=== PATIENT | female | born 1930 | race Caucasian/White ===

== ENCOUNTER 2019-08-24 20:28 | Inpatient (IN) | payer MEDICARE, BC ==
[2019-08-24] MEDS ORDERED: LORazepam 0.5 MG Tab PO ONE (21:15)
[2019-08-24] MEDS ORDERED: risperiDONE 0.5 MG Tab PO ONE ×2 (21:15→23:35)
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
[2019-08-24] MEDS ORDERED: LORazepam 0.5 MG Tab PO PRN (21:57)
[2019-08-25] MEDS ORDERED: LORazepam 0.5 MG Tab PO PRN ×2 (03:07→03:55)
[2019-08-25] MEDS ORDERED: risperiDONE 0.25 MG Tab PO SCH (09:00)
[2019-08-25] MEDS ORDERED: Mirtazapine 15 MG Tab PO SCH (09:00)
[2019-08-25] MEDS ORDERED: Acetaminophen 325 MG/10.15 ML ML PO PRN (12:51)
[2019-08-25] MEDS: Acetaminophen 325 MG Tab PO PRN (13:04)
[2019-08-25] MEDS: LORazepam 0.5 MG Tab PO PRN (14:29)
[2019-08-25] MEDS: QUEtiapine 25 MG Tab PO SCH ×2 (20:16→21:15)
[2019-08-25] MEDS: BETAMETHASONE DIPROPIONATE TOP SCH (20:20)
[2019-08-25] MEDS: CALCIPOTRIENE TOP SCH (20:20)
[2019-08-25] MEDS ORDERED: Sertraline 25 MG Tab PO SCH (21:00)
[2019-08-26] MEDS ORDERED: risperiDONE 0.25 MG Tab PO SCH (09:00)
[2019-08-26] MEDS: BETAMETHASONE DIPROPIONATE TOP SCH ×3 (09:00→20:07)
[2019-08-26] MEDS ORDERED: Non-Formulary Medication 1 Each (Mirtazapine [Mirtazapine] 7.5 MG) PO SCH (09:00)
[2019-08-26] MEDS: LORazepam 0.5 MG Tab PO PRN (09:04)
[2019-08-26] MEDS: CALCIPOTRIENE TOP SCH ×2 (09:04→13:42)
[2019-08-26] MEDS: Acetaminophen 325 MG Tab PO PRN ×2 (09:05→20:01)
[2019-08-26] MEDS: QUEtiapine 25 MG Tab PO SCH (20:01)
[2019-08-26] MEDS ORDERED: Mirtazapine 15 MG Tab PO SCH (21:00)
[2019-08-27] MEDS: LORazepam 0.5 MG Tab PO PRN (06:31)
[2019-08-27] MEDS: Acetaminophen 325 MG Tab PO PRN ×2 (06:31→20:04)
--- NOTE | 2019-08-27 09:13 | PCM.PN ---
- Patient Data Vitals - Most Recent: Last Vital Signs Temp 36.6 C 08/26/19 20:17 Pulse 80 08/26/19 20:17 Resp 20 08/26/19 20:17 BP 120/100 H 08/26/19 20:44 Pulse Ox 99 08/26/19 20:17 Weight - Most Recent: 59.058 kg I&O - Last 24 Hours: Intake & Output 08/26/19 08/27/19 08/27/19 22:59 06:59 14:59 Intake Total 880 340 Output Total 450 Balance 880 -110 Med Orders - Current: Current Medications Acetaminophen (Tylenol) 325 mg PO Q4H PRN PRN Reason: Pain Last Admin: 08/27/19 06:31 Dose: 325 mg Lorazepam (Ativan) 0.5 mg PO Q8H PRN PRN Reason: Anxiety Last Admin: 08/27/19 06:31 Dose: 0.5 mg Betamethasone (Dipropionate 1 Mg) 0 each TOP BID [facility] Last Admin: 08/26/19 20:07 Dose: 1 each Quetiapine Fumarate (Seroquel) 12.5 mg PO BEDTIME [facility] Last Admin: 08/26/19 20:01 Dose: 12.5 mg Discontinued Medications Lorazepam (Ativan) 0.5 mg PO ONETIME ONE Stop: 08/24/19 21:16 Last Admin: 08/24/19 21:27 Dose: 0.5 mg Lorazepam (Ativan) 0.5 mg PO BEDTIME PRN PRN Reason: agitation Last Admin: 08/24/19 23:38 Dose: 0.5 mg Lorazepam (Ativan) 0.5 mg PO Q6H PRN PRN Reason: restlessness Mirtazapine (Remeron) 7.5 mg PO DAILY [facility] Last Admin: 08/25/19 09:29 Dose: 7.5 mg Mirtazapine (Remeron) 7.5 mg PO BEDTIME [facility] Non-Formulary Medication (Mirtazapine [Mirtazapine]) 7.5 mg PO DAILY [facility] Calcipotriene [ (Dovonex] 1 Mg) 0 each TOP BID [facility] Last Admin: 08/26/19 13:42 Dose: Not Given Risperidone (Risperidal) 0.5 mg PO ONETIME ONE Stop: 08/24/19 21:16 Last Admin: 08/24/19 21:27 Dose: 0.5 mg Risperidone (Risperidal) 0.5 mg PO ONETIME ONE Stop: 08/24/19 23:36 Last Admin: 08/24/19 23:38 Dose: 0.5 mg Risperidone (Risperidal) 0.25 mg PO DAILY [facility] Last Admin: 08/25/19 09:29 Dose: 0.25 mg Risperidone (Risperidal) 0.25 mg PO DAILY [facility] Sertraline HCl (Zoloft) 25 mg PO BEDTIME [facility]
--- NOTE | 2019-08-27 09:13 | PCM.HP.2 ---
H&P History of Present Illness - General Admit Problem/Dx: Admission Diagnosis/Problem Admission Diagnosis/Problem Dementia Left Upper Abdomen Pain Score (Numeric/FACES): 4 - Related Data Allergies/Adverse Reactions: Allergies Allergy/AdvReac Type Severity Reaction Status Date / Time No Known Allergies Allergy Verified 08/24/19 20:46 Home Medications: Home Meds Betamethasone Dipropionate [Diprosone 0.05% Crm] 1 mg TOP BID 08/24/19 [History] Calcipotriene [Dovonex] 1 mg TOP BID 08/24/19 [History] LORazepam 0.5 mg PO Q8H PRN 08/24/19 [History] Mirtazapine 7.5 mg PO DAILY 08/24/19 [History] Sertraline [Zoloft] 25 mg PO DAILY 08/24/19 [History] risperiDONE 0.25 mg PO DAILY 08/24/19 [History] Past Medical History HEENT History: Reports: Impaired Vision Cardiovascular History: Reports: Afib, Hypertension Genitourinary History: Reports: Other (See Below) Other Genitourinary History: bladdar infections frequent [employer] History: Reports: Musculoskeletal History: Reports: Back Pain, Chronic, Osteoporosis, Other (See Below) Other Musculoskeletal History: scoliosis Neurological History: Reports: Alzheimers Disease, Other (See Below) Other Neuro History: dementia Psychiatric History: Reports: Alzheimers Disease, Anxiety, Dementia, Emotional Problems Dermatologic History: Reports: Psoriasis - Infectious Disease History Infectious Disease History: Reports: C-Difficile, Measles, Mumps - Past Surgical History HEENT Surgical History: Reports: Cataract Surgery Social & Family History - Family History Family Medical History: Noncontributory Neurological: Reports: Alzheimers Disease, Other (See Below) Other Neurological Family History: dementia - Tobacco Use Smoking Status *Q: Never Smoker Second Hand Smoke Exposure: No - Caffeine Use Caffeine Use: Reports: Coffee Caffeine Use Comment: de-caf coffee - Recreational Drug Use Recreational Drug Use: No Exam - Vital Signs Vital Signs: Last Vital Signs Temp 36.6 C 08/26/19 20:17 Pulse 80 08/26/19 20:17 Resp 20 08/26/19 20:17 BP 120/100 H 08/26/19 20:44 Pulse Ox 99 08/26/19 20:17 Weight: 59.058 kg Orders Last 24hrs: Medication Orders Acetaminophen (Tylenol) 325 mg PO Q4H PRN PRN Reason: Pain Last Admin: 08/27/19 06:31 Dose: 325 mg Admin: 08/26/19 20:01 Dose: 325 mg Admin: 08/26/19 09:05 Dose: 325 mg Admin: 08/25/19 13:04 Dose: 325 mg Lorazepam (Ativan) 0.5 mg PO Q8H PRN PRN Reason: Anxiety Last Admin: 08/27/19 06:31 Dose: 0.5 mg Admin: 08/26/19 09:04 Dose: 0.5 mg Admin: 08/25/19 14:29 Dose: 0.5 mg Betamethasone (Dipropionate 1 Mg) 0 each TOP BID [facility] Last Admin: 08/26/19 20:07 Dose: 1 each Admin: 08/26/19 09:00 Dose: Admin: 08/25/19 20:20 Dose: Quetiapine Fumarate (Seroquel) 12.5 mg PO BEDTIME [facility] Last Admin: 08/26/19 20:01 Dose: 12.5 mg Admin: 08/25/19 21:15 Dose: Admin: 08/25/19 20:16 Dose: 12.5 mg
--- NOTE | 2019-08-27 09:14 | PCM.PN ---
- General Info Date of Service: 08/27/19 - Patient Data Vitals - Most Recent: Last Vital Signs Temp 36.6 C 08/26/19 20:17 Pulse 80 08/26/19 20:17 Resp 20 08/26/19 20:17 BP 120/100 H 08/26/19 20:44 Pulse Ox 99 08/26/19 20:17 Weight - Most Recent: 59.058 kg I&O - Last 24 Hours: Intake & Output 08/26/19 08/27/19 08/27/19 22:59 06:59 14:59 Intake Total 880 340 Output Total 450 Balance 880 -110 Med Orders - Current: Current Medications Acetaminophen (Tylenol) 325 mg PO Q4H PRN PRN Reason: Pain Last Admin: 08/27/19 06:31 Dose: 325 mg Lorazepam (Ativan) 0.5 mg PO Q8H PRN PRN Reason: Anxiety Last Admin: 08/27/19 06:31 Dose: 0.5 mg Betamethasone (Dipropionate 1 Mg) 0 each TOP BID [facility] Last Admin: 08/26/19 20:07 Dose: 1 each Quetiapine Fumarate (Seroquel) 12.5 mg PO BEDTIME [facility] Last Admin: 08/26/19 20:01 Dose: 12.5 mg Discontinued Medications Lorazepam (Ativan) 0.5 mg PO ONETIME ONE Stop: 08/24/19 21:16 Last Admin: 08/24/19 21:27 Dose: 0.5 mg Lorazepam (Ativan) 0.5 mg PO BEDTIME PRN PRN Reason: agitation Last Admin: 08/24/19 23:38 Dose: 0.5 mg Lorazepam (Ativan) 0.5 mg PO Q6H PRN PRN Reason: restlessness Mirtazapine (Remeron) 7.5 mg PO DAILY [facility] Last Admin: 08/25/19 09:29 Dose: 7.5 mg Mirtazapine (Remeron) 7.5 mg PO BEDTIME [facility] Non-Formulary Medication (Mirtazapine [Mirtazapine]) 7.5 mg PO DAILY [facility] Calcipotriene [ (Dovonex] 1 Mg) 0 each TOP BID [facility] Last Admin: 08/26/19 13:42 Dose: Not Given Risperidone (Risperidal) 0.5 mg PO ONETIME ONE Stop: 08/24/19 21:16 Last Admin: 08/24/19 21:27 Dose: 0.5 mg Risperidone (Risperidal) 0.5 mg PO ONETIME ONE Stop: 08/24/19 23:36 Last Admin: 08/24/19 23:38 Dose: 0.5 mg Risperidone (Risperidal) 0.25 mg PO DAILY [facility] Last Admin: 08/25/19 09:29 Dose: 0.25 mg Risperidone (Risperidal) 0.25 mg PO DAILY [facility] Sertraline HCl (Zoloft) 25 mg PO BEDTIME [facility]
--- NOTE | 2019-08-27 09:14 | PCM.PN ---
- Patient Data Vitals - Most Recent: Last Vital Signs Temp 36.6 C 08/26/19 20:17 Pulse 80 08/26/19 20:17 Resp 20 08/26/19 20:17 BP 120/100 H 08/26/19 20:44 Pulse Ox 99 08/26/19 20:17 Weight - Most Recent: 59.058 kg I&O - Last 24 Hours: Intake & Output 08/26/19 08/27/19 08/27/19 22:59 06:59 14:59 Intake Total 880 340 Output Total 450 Balance 880 -110 Med Orders - Current: Current Medications Acetaminophen (Tylenol) 325 mg PO Q4H PRN PRN Reason: Pain Last Admin: 08/27/19 06:31 Dose: 325 mg Lorazepam (Ativan) 0.5 mg PO Q8H PRN PRN Reason: Anxiety Last Admin: 08/27/19 06:31 Dose: 0.5 mg Betamethasone (Dipropionate 1 Mg) 0 each TOP BID [facility] Last Admin: 08/26/19 20:07 Dose: 1 each Quetiapine Fumarate (Seroquel) 12.5 mg PO BEDTIME [facility] Last Admin: 08/26/19 20:01 Dose: 12.5 mg Discontinued Medications Lorazepam (Ativan) 0.5 mg PO ONETIME ONE Stop: 08/24/19 21:16 Last Admin: 08/24/19 21:27 Dose: 0.5 mg Lorazepam (Ativan) 0.5 mg PO BEDTIME PRN PRN Reason: agitation Last Admin: 08/24/19 23:38 Dose: 0.5 mg Lorazepam (Ativan) 0.5 mg PO Q6H PRN PRN Reason: restlessness Mirtazapine (Remeron) 7.5 mg PO DAILY [facility] Last Admin: 08/25/19 09:29 Dose: 7.5 mg Mirtazapine (Remeron) 7.5 mg PO BEDTIME [facility] Non-Formulary Medication (Mirtazapine [Mirtazapine]) 7.5 mg PO DAILY [facility] Calcipotriene [ (Dovonex] 1 Mg) 0 each TOP BID [facility] Last Admin: 08/26/19 13:42 Dose: Not Given Risperidone (Risperidal) 0.5 mg PO ONETIME ONE Stop: 08/24/19 21:16 Last Admin: 08/24/19 21:27 Dose: 0.5 mg Risperidone (Risperidal) 0.5 mg PO ONETIME ONE Stop: 08/24/19 23:36 Last Admin: 08/24/19 23:38 Dose: 0.5 mg Risperidone (Risperidal) 0.25 mg PO DAILY [facility] Last Admin: 08/25/19 09:29 Dose: 0.25 mg Risperidone (Risperidal) 0.25 mg PO DAILY [facility] Sertraline HCl (Zoloft) 25 mg PO BEDTIME [facility]
[2019-08-27] MEDS: BETAMETHASONE DIPROPIONATE TOP SCH ×2 (09:58→20:05)
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
[2019-08-27] MEDS ORDERED: risperiDONE 0.25 MG Tab PO STA (16:49)
[2019-08-27] MEDS: Sertraline 25 MG Tab PO SCH (20:03)
[2019-08-27] MEDS: Mirtazapine 15 MG Tab PO SCH (20:03)
[2019-08-28] MEDS: BETAMETHASONE DIPROPIONATE TOP SCH ×3 (07:48→20:04)
[2019-08-28] MEDS: LORazepam 0.5 MG Tab PO PRN ×2 (11:06→13:21)
[2019-08-28] MEDS ORDERED: hydrALAZINE 20 MG/ML SDV IVPUSH ONE (13:01)
[2019-08-28] MEDS ORDERED: Haloperidol Lactate 5 MG/ML SDV IVPUSH PRN (13:04)
[2019-08-28] MEDS ORDERED: Haloperidol Lactate 5 MG/ML SDV IVPUSH ONE (13:05)
[2019-08-28] MEDS: amLODIPine 10 MG Tab PO SCH (15:22)
[2019-08-28] MEDS ORDERED: hydrALAZINE 20 MG/ML SDV IVPUSH PRN (17:00)
[2019-08-28] MEDS: Mirtazapine 15 MG Tab PO SCH (20:05)
[2019-08-28] MEDS: Sertraline 25 MG Tab PO SCH (20:08)
--- NOTE | 2019-08-28 20:12 | PCM.PN ---
- General Info Date of Service: 08/28/19 - Patient Data Vitals - Most Recent: Last Vital Signs Temp 36.7 C 08/28/19 12:50 Pulse 72 08/28/19 12:50 Resp 18 08/28/19 12:50 BP 199/93 H 08/28/19 15:22 Pulse Ox 99 08/28/19 12:50 Weight - Most Recent: 59.058 kg I&O - Last 24 Hours: Intake & Output 08/28/19 08/28/19 08/28/19 06:59 14:59 22:59 Intake Total 200 120 120 Output Total 400 Balance -200 120 120 Med Orders - Current: Current Medications Acetaminophen (Tylenol) 325 mg PO Q4H PRN PRN Reason: Pain Last Admin: 08/27/19 20:04 Dose: 325 mg Amlodipine Besylate (Norvasc) 10 mg PO DAILY [facility] Last Admin: 08/28/19 15:22 Dose: 10 mg Haloperidol Lactate (Haldol) 2 mg IVPUSH Q30M PRN PRN Reason: Agitation Hydralazine HCl (Apresoline) 10 mg IVPUSH Q4H PRN PRN Reason: Hypertension Lorazepam (Ativan) 0.5 mg PO Q8H PRN PRN Reason: Anxiety Last Admin: 08/28/19 13:21 Dose: 0.5 mg Mirtazapine (Remeron) 7.5 mg PO BEDTIME [facility] Last Admin: 08/28/19 20:05 Dose: 7.5 mg Betamethasone (Dipropionate 1 Mg) 0 each TOP BID [facility] Last Admin: 08/28/19 20:04 Dose: 1 each Risperidone (Risperidal) 0.25 mg PO BEDTIME [facility] Last Admin: 08/28/19 20:07 Dose: 0.25 mg Sertraline HCl (Zoloft) 25 mg PO BEDTIME [facility] Last Admin: 08/28/19 20:08 Dose: 25 mg Discontinued Medications Haloperidol Lactate (Haldol) 2.5 mg IVPUSH ONETIME ONE Stop: 08/28/19 13:06 Last Admin: 08/28/19 13:20 Dose: Not Given Hydralazine HCl (Apresoline) 10 mg IVPUSH ONETIME ONE Stop: 08/28/19 13:02 Last Admin: 08/28/19 13:19 Dose: Not Given Lorazepam (Ativan) 0.5 mg PO ONETIME ONE Stop: 08/24/19 21:16 Last Admin: 08/24/19 21:27 Dose: 0.5 mg Lorazepam (Ativan) 0.5 mg PO BEDTIME PRN PRN Reason: agitation Last Admin: 08/24/19 23:38 Dose: 0.5 mg Lorazepam (Ativan) 0.5 mg PO Q6H PRN PRN Reason: restlessness Mirtazapine (Remeron) 7.5 mg PO DAILY [facility] Last Admin: 08/25/19 09:29 Dose: 7.5 mg Mirtazapine (Remeron) 7.5 mg PO BEDTIME [facility] Non-Formulary Medication (Mirtazapine [Mirtazapine]) 7.5 mg PO DAILY [facility] Calcipotriene [ (Dovonex] 1 Mg) 0 each TOP BID [facility] Last Admin: 08/26/19 13:42 Dose: Not Given Quetiapine Fumarate (Seroquel) 12.5 mg PO BEDTIME [facility] Last Admin: 08/26/19 20:01 Dose: 12.5 mg Risperidone (Risperidal) 0.5 mg PO ONETIME ONE Stop: 08/24/19 21:16 Last Admin: 08/24/19 21:27 Dose: 0.5 mg Risperidone (Risperidal) 0.5 mg PO ONETIME ONE Stop: 08/24/19 23:36 Last Admin: 08/24/19 23:38 Dose: 0.5 mg Risperidone (Risperidal) 0.25 mg PO DAILY [facility] Last Admin: 08/25/19 09:29 Dose: 0.25 mg Risperidone (Risperidal) 0.25 mg PO DAILY [facility] Risperidone (Risperidal) 0.25 mg PO NOW STA Stop: 08/27/19 16:50 Last Admin: 08/27/19 16:59 Dose: 0.25 mg Sertraline HCl (Zoloft) 25 mg PO BEDTIME [facility] - My Orders Last 24 Hours: My Active Orders 08/27/19 21:00 Mirtazapine [Remeron] 7.5 mg PO BEDTIME Sertraline [Zoloft] 25 mg PO BEDTIME 08/28/19 13:04 Haloperidol Lactate [Haldol] 2 mg IVPUSH Q30M PRN 08/28/19 15:30 amLODIPine [Norvasc] 10 mg PO DAILY 08/28/19 17:00 hydrALAZINE [Apresoline] 10 mg IVPUSH Q4H PRN 08/28/19 21:00 risperiDONE [RisperiDAL] 0.25 mg PO BEDTIME
[2019-08-28] MEDS ORDERED: risperiDONE 0.25 MG Tab PO SCH (21:00)
[2019-08-29] MEDS: Acetaminophen 325 MG Tab PO PRN (02:05)
[2019-08-29] MEDS: LORazepam 0.5 MG Tab PO PRN (02:07)
[2019-08-29] MEDS ORDERED: Haloperidol Lactate 5 MG/ML SDV IM ONE (08:29)
[2019-08-29] MEDS: amLODIPine 10 MG Tab PO SCH (08:35)
[2019-08-29] MEDS: BETAMETHASONE DIPROPIONATE TOP SCH ×2 (10:00→21:29)
[2019-08-29] MEDS ORDERED: Haloperidol Lactate 5 MG/ML SDV IM PRN (16:55)
[2019-08-29] MEDS: Mirtazapine 15 MG Tab PO SCH (20:02)
[2019-08-29] MEDS: Sertraline 25 MG Tab PO SCH (20:03)
[2019-08-29] MEDS ORDERED: risperiDONE 1 MG Tab PO SCH (21:00)
[2019-08-29] MEDS ORDERED: risperiDONE 0.5 MG Tab PO SCH (21:45)
[2019-08-30] MEDS: LORazepam 0.5 MG Tab PO PRN (08:02)
[2019-08-30] MEDS: BETAMETHASONE DIPROPIONATE TOP SCH (08:03)
[2019-08-30] MEDS: amLODIPine 10 MG Tab PO SCH (08:03)
--- NOTE | 2019-08-30 13:13 | PCM.DCSUM1 ---
Discharge Summary - Hospital Course HPI Initial Comments: 89-year-old female with history of severe dementia with paranoia and delusions was brought into the emergency room on August 24, 2019 because she was having delusions that she was kidnapped by 2 men, or possibly a woman. Emergency room physician spoke with the son and [id number] who stated that she was diagnosed with dementia proximal 1-2 years ago and has had several issues with psychotic features. Symptoms have worsened with paranoia and hallucinations recently. Patient had been on mirtazapine and lorazepam and was recently switched to Zoloft from mirtazapine and risperidone was added. Last week patient climbed out of her window because she thought that there was a horse in the doorway. She has been more confused and has been wandering lately. The day of admission she was convinced that her son and [id number] were kidnapping her. She was very upset and agitated. Decision was made to admit her to the hospital for comfort care, psychiatric consult, and placement to long-term care facility. Diagnosis: Stroke: No - Discharge Data Discharge Date: 08/30/19 Discharge Disposition: DC/Tfer to [facility] Condition: Good - Referral to Home Health Primary Care Physician: Nava Godinez MD - Patient Summary/Data Consults: Consultations 08/25/19 09:26 Consult to Physician [CONS] Routine Hospital Course: During hospitalization she had some minor medication adjustments because of agitation. Haldol unfortunately had to be used for symptomatic treatment. risperidone dose was increased. Patient's most significant issue during hospitalization was wandering. Patient will do much better in the locked environment where she can walk at her convenience. - Patient Instructions Diet: Usual Diet as Tolerated Driving: Do Not Drive - Discharge Plan *PRESCRIPTION DRUG MONITORING PROGRAM REVIEWED*: No *COPY OF PRESCRIPTION DRUG MONITORING REPORT IN PATIENT JUAN: No Prescriptions/Med Rec: risperiDONE [RisperiDAL] 1 mg PO BEDTIME #60 tablet Home Medications: Home Meds Betamethasone Dipropionate [Diprosone 0.05% Crm] 1 mg TOP BID 08/24/19 [History] Calcipotriene [Dovonex] 1 mg TOP BID 08/24/19 [History] LORazepam 0.5 mg PO Q8H PRN 08/24/19 [History] Mirtazapine 7.5 mg PO DAILY 08/24/19 [History] Sertraline [Zoloft] 25 mg PO DAILY 08/24/19 [History] Mirtazapine [Remeron] 7.5 mg PO BEDTIME tablet 08/30/19 [Rx] Sertraline [Zoloft] 25 mg PO BEDTIME tablet 08/30/19 [Rx] risperiDONE [RisperiDAL] 1 mg PO BEDTIME #60 tablet 08/30/19 [Rx] Forms: ED Department Discharge Referrals: Nava Godinez MD [Primary Care Provider] - - Discharge Summary/Plan Comment DC Time >30 min.: Yes Discharge Summary/Plan Comment: Patient will be discharged to [facility] for [facility] care. Follow-up with primary care provider within the next week or 2. - General Info Date of Service: 08/30/19 Admission Dx/Problem (Free Text: Admission Diagnosis/Problem Admission Diagnosis/Problem Dementia Subjective Update: Patient states that she is doing well, but is worried. Continues to be paranoid about kidnappers. - Review of Systems General: Reports: No Symptoms, Other HEENT: Reports: No Symptoms Pulmonary: Reports: No Symptoms Cardiovascular: Reports: No Symptoms Psychiatric: Reports: Confusion - Patient Data Vitals - Most Recent: Last Vital Signs Temp 98.1 F 08/30/19 08:02 Pulse 66 08/30/19 08:02 Resp 14 08/30/19 08:02 BP 160/85 H 08/30/19 08:03 Pulse Ox 98 08/30/19 08:02 Weight - Most Recent: 128 lb 3.2 oz I&O - Last 24 hours: Intake & Output 08/29/19 08/30/19 08/30/19 22:59 06:59 14:59 Intake Total 720 640 120 Output Total 500 Balance 720 140 120 Med Orders - Current: Current Medications Acetaminophen (Tylenol) 325 mg PO Q4H PRN PRN Reason: Pain Last Admin: 08/29/19 02:05 Dose: 325 mg Amlodipine Besylate (Norvasc) 10 mg PO DAILY [facility] Last Admin: 08/30/19 08:03 Dose: 10 mg Haloperidol Lactate (Haldol) 0.5 mg IM Q6HR PRN PRN Reason: Agitation Last Admin: 08/29/19 17:13 Dose: 0.5 mg Hydralazine HCl (Apresoline) 10 mg IVPUSH Q4H PRN PRN Reason: Hypertension Lorazepam (Ativan) 0.5 mg PO Q8H PRN PRN Reason: Anxiety Last Admin: 08/30/19 08:02 Dose: 0.5 mg Mirtazapine (Remeron) 7.5 mg PO BEDTIME [facility]LIE Last Admin: 08/29/19 20:02 Dose: 7.5 mg Betamethasone (Dipropionate 1 Mg) 0 each TOP BID [facility] Last Admin: 08/30/19 08:03 Dose: Not Given Risperidone (Risperidal) 1 mg PO BEDTIME [facility] Sertraline HCl (Zoloft) 25 mg PO BEDTIME [facility] Last Admin: 08/29/19 20:03 Dose: 25 mg Discontinued Medications Haloperidol Lactate (Haldol) 2 mg IVPUSH Q30M PRN PRN Reason: Agitation Haloperidol Lactate (Haldol) 2.5 mg IVPUSH ONETIME ONE Stop: 08/28/19 13:06 Last Admin: 08/28/19 13:20 Dose: Not Given Haloperidol Lactate (Haldol) 0.5 mg IM ONETIME ONE Stop: 08/29/19 08:30 Last Admin: 08/29/19 08:39 Dose: 0.5 mg Hydralazine HCl (Apresoline) 10 mg IVPUSH ONETIME ONE Stop: 08/28/19 13:02 Last Admin: 08/28/19 13:19 Dose: Not Given Lorazepam (Ativan) 0.5 mg PO ONETIME ONE Stop: 08/24/19 21:16 Last Admin: 08/24/19 21:27 Dose: 0.5 mg Lorazepam (Ativan) 0.5 mg PO BEDTIME PRN PRN Reason: agitation Last Admin: 08/24/19 23:38 Dose: 0.5 mg Lorazepam (Ativan) 0.5 mg PO Q6H PRN PRN Reason: restlessness Mirtazapine (Remeron) 7.5 mg PO DAILY [facility] Last Admin: 08/25/19 09:29 Dose: 7.5 mg Mirtazapine (Remeron) 7.5 mg PO BEDTIME [facility] Non-Formulary Medication (Mirtazapine [Mirtazapine]) 7.5 mg PO DAILY [facility] Calcipotriene [ (Dovonex] 1 Mg) 0 each TOP BID [facility] Last Admin: 08/26/19 13:42 Dose: Not Given Quetiapine Fumarate (Seroquel) 12.5 mg PO BEDTIME [facility] Last Admin: 08/26/19 20:01 Dose: 12.5 mg Risperidone (Risperidal) 0.5 mg PO ONETIME ONE Stop: 08/24/19 21:16 Last Admin: 08/24/19 21:27 Dose: 0.5 mg Risperidone (Risperidal) 0.5 mg PO ONETIME ONE Stop: 08/24/19 23:36 Last Admin: 08/24/19 23:38 Dose: 0.5 mg Risperidone (Risperidal) 0.25 mg PO DAILY [facility] Last Admin: 08/25/19 09:29 Dose: 0.25 mg Risperidone (Risperidal) 0.25 mg PO DAILY [facility] Risperidone (Risperidal) 0.25 mg PO BEDTIME [facility] Last Admin: 08/28/19 20:07 Dose: 0.25 mg Risperidone (Risperidal) 0.25 mg PO NOW STA Stop: 08/27/19 16:50 Last Admin: 08/27/19 16:59 Dose: 0.25 mg Risperidone (Risperidal) 1 mg PO BEDTIME [facility] Last Admin: 08/29/19 22:52 Dose: Not Given Risperidone (Risperidal) 1 mg PO BEDTIME [facility] Stop: 08/29/19 21:46 Last Admin: 08/30/19 01:07 Dose: Not Given Sertraline HCl (Zoloft) 25 mg PO BEDTIME L[facility]LIE - Exam Quality Assessment: Denies: Supplemental Oxygen General: Reports: Alert, Cooperative HEENT: Reports: Pupils Equal Neck: Reports: Supple Lungs: Reports: Clear to Auscultation, Normal Respiratory Effort Cardiovascular: Reports: Regular Rate, Regular Rhythm GI/Abdominal Exam: Normal Bowel Sounds, Soft, Non-Tender, No Distention Skin: Reports: Warm, Dry, Intact Psy/Mental Status: Reports: Alert, Anxious
[2019-08-30] MEDS ORDERED: risperiDONE 0.5 MG Tab PO SCH (21:00)
== END 2019-08-30 15:05 | DRG 57 ==
LOC: JD.ED 20:28 → JD.MS 08-25 02:01
PROVIDERS: ADMIT Internal Medicine; ATTEND Internal Medicine
DX: G30.9 Alzheimer's disease, unspecified (principal); F02.81 Dementia in other diseases classified elsewhere, unspecified severity, with behavioral disturbance; Z91.83 Wandering in diseases classified elsewhere; F39 Unspecified mood [affective] disorder; R41.0 Disorientation, unspecified; F22 Delusional disorders; F28 Other psychotic disorder not due to a substance or known physiological condition; R45.1 Restlessness and agitation; M81.0 Age-related osteoporosis without current pathological fracture; F41.9 Anxiety disorder, unspecified; I10 Essential (primary) hypertension; I48.91 Unspecified atrial fibrillation; Z98.49 Cataract extraction status, unspecified eye; Z79.899 Other long term (current) drug therapy
CPT/HCPCS: 99285; A9270 ×4; 36415; 81001; 85025; J1630